=== PATIENT | male | born 1975 ===

== ENCOUNTER 2022-12-02 12:23 | Emergency (ER) | payer SELFPAY ==
--- NOTE | ~2022-12-02 | XR_ITS ---
EXAMINATION: XR chest 2V DATE: 12/02/2022 13:04 INDICATION: Chest pain TECHNIQUE: PA and lateral views of the chest are obtained. COMPARISON: None available FINDINGS: The lungs are free of acute opacities. No pleural effusion or pneumothorax. The cardiomedia stinal silhouette is normal. There is mild thoracic spondylosis. IMPRESSION: 1. No acute cardiopulmonary abnormality. Reviewed, dictated and finalized at location B.
--- NOTE | 2022-12-02 12:34 | ECG_ITS ---
Measurements Intervals [place] Rate: 95 P: 60 CT: 138 QRS: 39 QRSD: 95 T: 35 QT: 342 QTc: 431 Interpretive Statements SINUS RHYTHM NO PREVIOUS ECG AVAILABLE FOR COMPARISON Electronically Signed On 12-03-2022 14:56:54 CDT by Jeffery Gonzalez M.D.
[2022-12-02 12:56] LABS: Basophils Absolute Auto 0.1 K/mm3 (0.0-0.1); Basophils Percent Auto 1.5 % (0.2-1.2); Eosinophils Absolute Auto 0.1 K/mm3 (0-0.3); Eosinophils Percent Auto 1.5 % (0-4.4); Hematocrit 47.6 % (42.0-52.0); Hemoglobin 16.4 g/dL (14.0-18.0); Immature Granulocyte Absolute 0.09 K/mm3 (0.00-0.031); Lymphocytes Absolute Auto 2.79 K/mm3 (0.9-3.2); Lymphocytes Percent Auto 30.6 % (18.3-44.2); Mean Corpuscular HGB Conc 34.5 g/dl (32-36); Mean Corpuscular Hemoglobin 32.2 pg (26-34); Mean Corpuscular Volume 93.3 fl (80-100); Mean Platelet Volume 11.8 fl (7.4-10.4); Monocytes Absolute Auto 0.7 K/mm3 (0.1-0.6); Monocytes Percent Auto 7.9 % (2.6-8.5); Neutrophils Absolute Auto 5.2 K/mm3 (1.3-6.7); Neutrophils Percent Auto 57.5 % (45.5-73.1); Platelet Count Result 189 k/mm3 (150-375); Red Cell Distribution Width 12.2 % (11.5-14.5); White Blood Count 9.1 K/mm3 (4.5-10.0)
[2022-12-02 13:09] LABS: Prothrombin Time 12.3 Seconds (11.1-14.7)
[2022-12-02 13:10] LABS: Partial Thromboplastin Time 27.7 SECONDS (22.3-36.8)
[2022-12-02 13:27] VITALS: BP 145/87; PULSE 86; RESP 16; TEMP 37; O2SAT 98
[2022-12-02 14:07] LABS: Alanine Aminotransferase 35 U/L (6-50); Albumin Level 4.8 g/dL (3.5-5.1); Alkaline Phosphatase 72 U/L (38-126); Anion Gap 4 mmol/L (8-16); Aspartate Amino Transferase 27 U/L (17-59); Bilirubin,Total 0.6 mg/dL (0.2-1.3); Blood Urea Nitrogen 15 mg/dL (9-20); Calcium 9.2 mg/dL (8.4-10.2); Carbon Dioxide 29 mmol/L (22-30); Chloride 105 mmol/L (98-107); Estimated CRCL calculation 124 ml/min; Estimated Glomerular Filt Rate > 60; Glucose 100 mg/dL (65-110); Lipase 51 U/L (23-300); Potassium 4.4 mmol/L (3.4-5.0); Sodium 138 mmol/L (137-145)
[2022-12-02 14:18] LABS: Troponin I < 0.012 ng/mL (0.000-0.034)
[2022-12-02 17:08] LABS: Troponin I < 0.012 ng/mL (0.000-0.034)
--- NOTE | 2022-12-02 19:35 | PC.NURSE ---
Called pt for blood draw, pt did not respond to calling name.
--- NOTE | 2022-12-02 21:46 | PC.NURSE ---
2121 - Pt called for room, no answer 2131 - Pt called for vitals, no answer
== END 2022-12-02 19:35 | disposition left against medical advice (07) ==
LOC: ANHED 21:51
PROVIDERS: Emergency Provider Emergency Medicine
DX: M54.50 Low back pain, unspecified (principal)
CPT/HCPCS: 36415; 71046; 80053; 83690; 84484; 85025; 85610; 85730; 93005; 99199